=== PATIENT | female | born 1995 | race Caucasian/White ===

== ENCOUNTER 2019-06-18 22:03 | Emergency (ER) | payer BC ==
[~2019-06-18] VITALS: Ht 167.6 cm; Wt 65.3 kg
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
--- NOTE | 2019-06-18 23:34 | NUR ---
Patient does not wish to proceed with medical care recommended by Dr. JNOES. Patient given information related to possible complications, up to and including , which could occur as a result of leaving the hospital at this time. Patient verbalizes understanding of risks involved due to leaving against medical advice. Patient has signed AMA form. Addendum: 06/18/19 at 2339 by RHILOMEN ERROR, WRONG PT
[2019-06-18 23:35] VITALS: BP 129/65
--- NOTE | 2019-06-19 00:28 | NUR ---
Patient is ambulatory w/ steady gait. Patient discharged to home in stable condition. Written and verbal after care instructions given. Patient verbalizes understanding of instruction.
== END 2019-06-19 00:31 | disposition home or self-care (01) ==
LOC: ER 22:06
DX: O9A.211 Injury, poisoning and certain other consequences of external causes complicating pregnancy, first trimester (principal); M25.551 Pain in right hip; Z3A.12 12 weeks gestation of pregnancy; V49.49XA Driver injured in collision with other motor vehicles in traffic accident, initial encounter; Y93.89 Activity, other specified; Y92.413 State road as the place of occurrence of the external cause; Y99.8 Other external cause status
CPT/HCPCS: 76805-TC